=== PATIENT | male | born 1960 | race African-American/Black ===

== ENCOUNTER 2017-09-04 21:47 | Emergency (ER) | payer MEDICAID, OTHER ==
[~2017-09-04] VITALS: Ht 203.2 cm; Wt 128.2 kg
[2017-09-04 21:49] VITALS: BP 188/113
[2017-09-04] MEDS ORDERED: AMLODIPINE (22:05)
[2017-09-04] MEDS ORDERED: LISINOPRIL (22:05)
== END 2017-09-04 22:23 | disposition home or self-care (01) ==
LOC: ED 22:10
DX: I10 Essential (primary) hypertension (principal); Z76.0 Encounter for issue of repeat prescription
CPT/HCPCS: 99283